=== PATIENT | male | born 1995 | race Caucasian/White ===

== ENCOUNTER 2020-09-05 15:11 | Emergency (ER) | payer MEDICAID ==
--- NOTE | 2020-09-05 16:12 | PCM.PRNOTE ---
- Free Text/Narrative Note: Patient left without being seen. -Alexis William MD
== END 2020-09-05 16:00 | disposition left against medical advice (07) ==
LOC: MW.ED 15:11
DX: Z53.21 Procedure and treatment not carried out due to patient leaving prior to being seen by health care provider (principal)